=== PATIENT | male | born 2005 | race Caucasian/White ===

== ENCOUNTER 2025-05-14 18:45 | Emergency (ER) | payer OTHER ==
[2025-05-14] MEDS: Diphtheria,Pertussis(Acell),Tetanus Vaccine 0.5 ML Syringe IM ONE (19:21)
[2025-05-14] MEDS: Amoxicillin/Clavulanate K 875-125 MG Tab PO ONE (19:21)
== END 2025-05-14 19:26 | disposition home or self-care (01) ==
LOC: VM.ED 18:45 → SUPCPDRO 18:45 → VM.ED 19:26
DX: S01.01XA Laceration without foreign body of scalp, initial encounter (principal); Z79.899 Other long term (current) drug therapy; W50.0XXA Accidental hit or strike by another person, initial encounter; Z23 Encounter for immunization
CPT/HCPCS: 12002; 90471; 90715; 99282; 99283; A9270